=== PATIENT | female | born 1985 | race Two or more races ===

== ENCOUNTER 2023-08-10 20:11 | Emergency (ER) | payer OTHER ==
[~2023-08-10] VITALS: Ht 172.7 cm; Wt 90.7 kg
[2023-08-10 21:42] LABS: HEMOGLOBIN 16.2 g/dL (12.0-15.00); MEAN CELL VOLUME 86.9 fL (80.00-100.00); MEAN CORPUSCULAR HEMOGLOBIN 29.3 pg (27.00-32.0); MEAN CORPUSCULAR HGB CONC 33.7 g/dl (32.0-36.0); PLATELET COUNT 313 K/uL (150-450); RED BLOOD COUNT 5.53 M/uL (4.00-6.00); RED CELL DISTRIBUTION WIDTH 13.7 % (11.5-14.5)
[2023-08-10 22:34] LABS: ALKALINE PHOSPHATASE 73 U/L (50-136); ALT/SGPT 42 U/L (12-78); AMYLASE 113 U/L (25-115); ANION GAP 11 (10.0-20.0); AST/SGOT 24 U/L (15-37); BILIRUBIN TOTAL 1.16 mg/dL (0.3-1.2); BLOOD UREA NITROGEN 15 mg/dL (7-18); BUN CREA RATIO 17 (7.0-25.0); CALCIUM 9.1 mg/dL (8.5-10.1); CARBON DIOXIDE 27 mEq/L (21-32); CHLORIDE 106 mmol/L (98-107); CREATININE SERUM 0.89 mg/dL (0.55-1.02); GFR 71.76; GLOBULINA 3.4 G/DL (2.4-3.5); GLUCOSE FASTING 148 mg/dL (65-100); HCG QUANTITATIVE < 1 mUI/mL (1-3); LIPASE 36 U/L (13-75); OSMOLALITY SERUM 283 MOSM/KG (275-295); POTASSIUM 4.21 mEq/L (3.5-5.1); SODIUM 140 mmol/L (136-145); TOTAL PROTEIN 7.4 gm/dL (6.4-8.2)
== END 2023-08-10 23:03 | disposition home or self-care (01) ==
LOC: ER 20:12
PROVIDERS: General Practice
DX: K52.89 Other specified noninfective gastroenteritis and colitis (principal)